=== PATIENT | male | born 2000 | race African-American/Black ===

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

== ENCOUNTER 2018-03-13 14:56 | Emergency (ER) | payer SELFPAY ==
--- NOTE | 2018-03-14 06:57 | EDM.PDOC ---
ED HPI GENERAL MEDICAL PROBLEM - General Chief Complaint: ENT Problem Stated Complaint: THROAT,FEVER Time Seen by Provider: 03/13/18 15:25 Source of Information: Reports: Patient History Limitations: Reports: No Limitations - History of Present Illness INITIAL COMMENTS - FREE TEXT/NARRATIVE: Presents to ER with complaints of sore throat for past several days. No rashes. No N/V/D. No chest pain or shortness of breath. No cough. Onset Date: 03/13/18 Throat Pain Score (Numeric/FACES): 10 - Related Data Allergies Allergy/AdvReac Type Severity Reaction Status Date / Time No Known Allergies Allergy Verified 01/25/17 23:23 Home Meds: Home Meds . [No Known Home Meds] 01/25/17 [History] Past Medical History - Past Health History Medical/Surgical History: Denies Medical/Surgical History Respiratory History: Reports: Asthma Social & Family History - Tobacco Use Smoking Status *Q: Never Smoker - Recreational Drug Use Recreational Drug Use: No ED ROS GENERAL - Review of Systems Review Of Systems: See Below Constitutional: Reports: No Symptoms HEENT: Reports: Other (sore throat) Respiratory: Reports: No Symptoms Cardiovascular: Reports: No Symptoms Endocrine: Reports: No Symptoms GI/Abdominal: Reports: No Symptoms : Reports: No Symptoms Musculoskeletal: Reports: No Symptoms Skin: Reports: No Symptoms Neurological: Reports: No Symptoms ED EXAM, GENERAL - Physical Exam Exam: See Below Exam Limited By: No Limitations General Appearance: Alert, WD/WN, No Apparent Distress Eye Exam: Bilateral Eye: EOMI, Normal Fundi, Normal Inspection, PERRL Ears: Normal External Exam, Normal Canal, Hearing Grossly Normal, Normal TMs Nose: Normal Inspection, Normal Mucosa, No Blood Throat/Mouth: Normal Lips, Normal Gums, Other (posterior pharynx is erythematous ) Head: Atraumatic, Normocephalic Neck: Normal Inspection, Full Range of Motion, Lymphadenopathy (L), Lymphadenopathy (R) Respiratory/Chest: No Respiratory Distress, Lungs Clear, Normal Breath Sounds, No Accessory Muscle Use, Chest Non-Tender Cardiovascular: Normal Peripheral Pulses, Regular Rate, Rhythm, No Edema, No Gallop, No JVD, No Murmur, No Rub Course - Vital Signs Last Recorded V/S: Last Vital Signs Temp 37.1 C 03/13/18 15:05 Pulse 109 H 03/13/18 15:05 Resp 16 03/13/18 15:05 BP 122/70 03/13/18 15:05 Pulse Ox 99 03/13/18 15:05 Departure - Departure Time of Disposition: 16:20 Disposition: Home, Self-Care 01 Condition: Good Clinical Impression: Pharyngitis, Strep pharyngitis - Discharge Information Instructions: Strep Throat, [id number], Probiotics Referrals: Alexsandra Richmond, [Primary Care Provider] - Forms: ED Department Discharge Additional Instructions: Amoxicillin 875mg twice daily for 10 days Drink plenty of fluids Tylenol and ibuprofen for discomfort Follow-up in clinic in 10-14 days - Assessment/Plan Plan: Amoxicillin 875mg twice daily for 10 days Drink plenty of fluids Tylenol and ibuprofen for discomfort Follow-up in clinic in 10-14 days
== END 2018-03-13 16:20 | disposition home or self-care (01) ==
LOC: VM.ED 14:56
DX: J02.0 Streptococcal pharyngitis (principal)
CPT/HCPCS: 87880-QW; 99282